=== PATIENT | male | born 1980 ===

== ENCOUNTER 2018-09-24 03:24 | Emergency (ER) | payer MEDICAID ==
[2018-09-24 04:00] VITALS: BMI 27.8
[2018-09-24 04:01] VITALS: BP 135/90; TEMP 98.6
--- NOTE | 2018-09-24 04:41 | ED PDOC ---
HPI: Influenza Time Seen by Provider: 09/24/18 04:13 Chief Complaint: Cough, Cold, Congestion Past Medical History Vital Signs: Last Vital Signs Temp 98.6 F 09/24/18 03:44 Pulse 108 H 09/24/18 03:44 Resp 18 09/24/18 03:44 BP 135/90 09/24/18 03:44 Pulse Ox 97 09/24/18 03:44 - Allergies Allergies/Adverse Reactions: Allergies Allergy/AdvReac Type Severity Reaction Status Date / Time No Known Allergies Allergy Verified 09/24/18 04:00 - ECG O2 Sat by Pulse Oximetry: 97 Disposition - Disposition
--- NOTE | 2018-09-24 05:00 | ED PDOC ---
HPI: General Adult Time Seen by Provider: 09/24/18 04:13 Chief Complaint (Nursing): Cough, Cold, Congestion Chief Complaint (Provider): cough History Per: Patient History/Exam Limitations: no limitations Onset/Duration Of Symptoms: Days (3-4x weeks) Have you had recent travel within the past 21 days to any of the following countries: [place], [place], [place] or [place]?: No Current Symptoms Are (Timing): Still Present Severity: Moderate Additional Complaint(s): 38 year old male with a past medical history of pneumonia (diagnosed last year) presents to the ED with complaints of a cough productive of yellow sputum that has been ongoing for 3-4x weeks. Patient states that last year he was diagnosed with pneumonia, but did not require hospitalization. Patient denies having fevers, chest pain, shortness of breath, hemoptysis, recent travel, and sick contacts. PMD: Vargas Craig MD Past Medical History Reviewed: Historical Data, Nursing Documentation, Vital Signs Vital Signs: Last Vital Signs Temp 98.6 F 09/24/18 03:44 Pulse 108 H 09/24/18 03:44 Resp 18 09/24/18 03:44 BP 135/90 09/24/18 03:44 Pulse Ox 97 09/24/18 04:41 - Medical History PMH: Pneumonia (2017) - Surgical History Surgical History: No Surg Hx - Family History Family History: States: No Known Family Hx - Social History Alcohol: None Drugs: Denies - Home Medications Home Medications: Ambulatory Orders Medication Instructions Recorded Albuterol HFA [Ventolin HFA 90 2 puff IH [id number] PRN #120 puff 09/24/18 mcg/actuation (8 g)] Azithromycin [Zithromax] 250 mg PO DAILY #6 tab 09/24/18 RX: Promethazine DM [Phenergan DM 5 - 10 ml PO Q8 PRN #120 ml 09/24/18 Syrup] - Allergies Allergies/Adverse Reactions: Allergies Allergy/AdvReac Type Severity Reaction Status Date / Time No Known Allergies Allergy Verified 09/24/18 04:00 Review of Systems ROS Statement: Except As Marked, All Systems Reviewed And Found Negative Constitutional: Negative for: Fever Cardiovascular: Negative for: Chest Pain Respiratory: Positive for: Cough, Sputum (yellow). Negative for: Shortness of Breath, Hemoptysis Physical Exam - Reviewed Nursing Documentation Reviewed: Yes Vital Signs Reviewed: Yes - Physical Exam Appears: Positive for: Well, Non-toxic, No Acute Distress Head Exam: Positive for: ATRAUMATIC, NORMOCEPHALIC Skin: Positive for: Normal Color, Warm, Dry Eye Exam: Positive for: Normal appearance, EOMI, PERRL ENT: Positive for: Normal ENT Inspection Cardiovascular/Chest: Positive for: Regular Rate, Rhythm. Negative for: Tachycardia Respiratory: Positive for: Normal Breath Sounds Neurologic/Psych: Positive for: Alert, Oriented (3x) - ECG O2 Sat by Pulse Oximetry: 97 (RA) Pulse Ox Interpretation: Normal - Radiology X-Ray: Interpreted by Me (CXR) X-Ray Interpretation: No Acute Disease Medical Decision Making Medical Decision Makin:13 Initial impression: 38 year old male with a cough. Initial plan: * XRay chest 2 views * reevaluation Scribe Attestation: Documented byOra Carter, acting as a scribe for Isaiah Wang Provider Scribe Attestation: All medical record entries made by the Scribe were at my direction and personally dictated by me. I have reviewed the chart and agree that the record accurately reflects my personal performance of the history, physical exam, medical decision making, and the department course for this patient. I have also personally directed, reviewed, and agree with the discharge instructions and disposition. Disposition - Clinical Impression Clinical Impression: Acute bronchitis - Patient ED Disposition Is Patient to be Admitted: No - Disposition Referrals: [facility] [Outside] Disposition: Routine/Home Disposition Time: 05:30 Condition: STABLE Additional Instructions: FOLLOW UP WITH PMD FOR FURTHER EVALUATION RETURN TO ED IMMEDIATELY IF SYMPTOMS WORSEN [place], thank you for letting us take care of you today. Your provider was Armando Stephens MD and you were treated for COUGH. The emergency medical care you received today was directed at your acute symptoms. If you were prescribed any medication, please fill it and take as directed. It may take several days for your symptoms to resolve. Return to the Emergency Department if your symptoms worsen, do not improve, or if you have any other problems. Please contact your doctor or call one of the physicians/clinics you have been referred to that are listed on the Patient Visit Information form that is included in your discharge packet. Bring any paperwork you were given at discharge with you along with any medications you are taking to your follow up visit. Our treatment cannot replace ongoing medical care by a primary care provider outside of the emergency department. Thank you for allowing the [facility] team to be part of your care today. If you had an X-Ray or CT scan: A Radiologist will review the ED reading if any change in treatment is needed we will contact you. If you had a blood, urine, or wound culture: It will take several days for the results, if any change in treatment is needed we will contact you. If you had an STI test: It will take 48 hours for the results. Please call after 1 week if you have not heard back. Prescriptions: Albuterol HFA [Ventolin HFA 90 mcg/actuation (8 g)] 2 puff IH [id number] PRN #120 puff PRN Reason: Cough Azithromycin [Zithromax] 250 mg PO DAILY #6 tab RX: Promethazine DM [Phenergan DM Syrup] 5 - 10 ml PO Q8 PRN #120 ml PRN Reason: Cough Instructions: Acute Bronchitis, Adult (DC) Forms: [employer] (German) Print Language: INDONESIAN
[2018-09-24 05:01] VITALS: PULSE 95; RESP 19
[2018-09-24 05:02] VITALS: O2SAT 97
--- NOTE | 2018-09-24 09:10 | RAD ---
Date of service: 09/24/2018 HISTORY: cough COMPARISON: No prior. TECHNIQUE: Chest PA and lateral FINDINGS: LUNGS: No active pulmonary disease. PLEURA: No significant pleural effusion identified. No pneumothorax apparent. CARDIOVASCULAR: No aortic atherosclerotic calcification present. Normal cardiac size. No pulmonary vascular congestion. OSSEOUS STRUCTURES: No significant abnormalities. VISUALIZED UPPER ABDOMEN: Normal. OTHER FINDINGS: None. IMPRESSION: No acute cardiopulmonary disease appreciated.
== END 2018-09-24 06:02 | disposition home or self-care (01) ==
LOC: H.ER 03:24
DX: J20.9 Acute bronchitis, unspecified (principal)

== ENCOUNTER 2018-10-25 15:35 | Emergency (ER) | payer MEDICAID ==
[2018-10-25 15:35] VITALS: BMI 27.8
--- NOTE | 2018-10-25 17:23 | ED PDOC ---
HPI: Influenza Time Seen by Provider: 10/25/18 16:34 Chief Complaint: Cough, Cold, Congestion Chief Complaint (Provider): cough, hemoptysis, back pain History Per: Patient, Family () Exam Limitations: no limitations Symptoms include: cough, difficulty breathing Additional complaint(s):: 38 y/o M with hx of PNA in the past but no other significant PMH who presents with persistent cough x 2 months with hemoptysis and back pain. Pt states that he has been having a cough x 2 months. He was seen here in ED on 10/01 at which time CXR was negative for acute process. He was discharged home with a course of antibiotics which he completed. Cough has remained unchanged, so he saw his PMD one week later who gave him cough medication. Cough continues to persist and has been having episodes of blood tinged sputum with some clots for the past 2 weeks or so. He states that he feels something is wrong. He has also been having some SOB and he feels like he is having weight loss but is unsure of how much. He had a fever to 102 about 5 days ago but none since. Denies dizziness, chest pain, palpitations. This morning he coughed and suddenly had an episode of acute left sided back pain. Denies hx of back pain, numbness or tingling in feet. Past Medical History Reviewed: Historical Data, Nursing Documentation, Vital Signs Vital Signs: Last Vital Signs Temp 97.8 F 10/25/18 16:20 Pulse 85 10/25/18 16:20 Resp 20 10/25/18 16:20 BP 154/103 H 10/25/18 16:20 Pulse Ox 98 10/25/18 16:20 - Medical History PMH: No Chronic Diseases, Pneumonia (2017) - Family History Family History: States: Unknown Family Hx - Home Medications Home Medications: Ambulatory Orders Medication Instructions Recorded Albuterol HFA [Ventolin HFA 90 2 puff IH [id number] PRN #120 puff 09/24/18 mcg/actuation (8 g)] Azithromycin [Zithromax] 250 mg PO DAILY #6 tab 09/24/18 RX: Promethazine DM [Phenergan DM 5 - 10 ml PO Q8 PRN #120 ml 09/24/18 Syrup] Cyclobenzaprine [Cyclobenzaprine 10 mg PO Q8 PRN 5 Days tab 10/25/18 HCl] RX: Albuterol HFA [Ventolin HFA 90 1 puff IH Q4 PRN #1 inhaler 10/25/18 mcg/actuation (8 g)] RX: Benzonatate 100 mg PO Q8 PRN 7 Days capsule 10/25/18 RX: Ibuprofen [Motrin Tab] 800 mg PO Q6 PRN 7 Days tab 10/25/18 - Allergies Allergies/Adverse Reactions: Allergies Allergy/AdvReac Type Severity Reaction Status Date / Time No Known Allergies Allergy Verified 09/24/18 04:00 Physical Exam - Reviewed Nursing Documentation Reviewed: Yes Vital Signs Reviewed: Yes - Physical Exam Appears: Positive for: Uncomfortable Head Exam: Positive for: ATRAUMATIC Skin: Positive for: Normal Color ENT: Positive for: Normal ENT Inspection Neck: Positive for: Normal Cardiovascular/Chest: Positive for: Regular Rate, Rhythm Respiratory: Positive for: Normal Breath Sounds Gastrointestinal/Abdominal: Positive for: Normal Exam Back: Positive for: Decreased ROM, Other (+ tenderness on palpation of left mid back. + back pain with flexion at hip on Left. ). Negative for: L CVA Tenderness, R CVA Tenderness Extremity: Positive for: Normal ROM Lymphatic: Positive for: Normal Exam Neurologic/Psych: Positive for: Alert, Oriented Medical Decision Making Medical Decision Making: CBC, BMP CT chest w/o contrast Toradol 30mg IM x 1 Flexeril 10mg PO x 1 CT chest:No evidence of pneumonia or suspicious consolidation in the lungs. 4.5 millimeter nodule at the left lung upper lobe. Twelve month follow-up reassessment is suggested. Slightly enlarged precarinal lymph node. 19:00: Results given to patient and recommended to f/u with otm consultant for further evaluation of cough. Also recommended to continue cough medications and Albuterol for cough. Pt's back pain has improved significantly after Flexeril and Toradol. Stable for D/C home. - Laboratory Results Result Diagrams: 10/25/18 17:47 10/25/18 17:47 - ECG O2 Sat by Pulse Oximetry: 98 Disposition - Clinical Impression Clinical Impression: Cough - Patient ED Disposition Is Patient to be Admitted: No Counseled Patient/Family Regarding: Studies Performed, Diagnosis, Need For Followup, Rx Given - Disposition Referrals: Vargas Douglas MD [Medical Doctor] - Trey Brush MD [Staff Provider] - Disposition: Routine/Home Disposition Time: 19:15 Condition: STABLE Additional Instructions: F/u with otm consultant (Dr. Brush) for further evaluation of cough and b/c of pulmonary nodule noted on your CT scan. Take Benzonatate and Albuterol inhaler as needed for cough. Take Flexeril and Ibuprofen for muscle pain. AVoid taking Flexeril if you will be driving or operating heavy machinery. Return to ER if you start to have worsening shortness of breath. Prescriptions: RX: Albuterol HFA [Ventolin HFA 90 mcg/actuation (8 g)] 1 puff IH Q4 PRN #1 inhaler PRN Reason: Cough RX: Benzonatate 100 mg PO Q8 PRN 7 Days capsule PRN Reason: Cough Cyclobenzaprine [Cyclobenzaprine HCl] 10 mg PO Q8 PRN 5 Days tab PRN Reason: Pain, Moderate (4-7) RX: Ibuprofen [Motrin Tab] 800 mg PO Q6 PRN 7 Days tab PRN Reason: Pain, Moderate (4-7) Instructions: Cough, Adult (DC) Forms: [employer] (Icelandic) Print Language: AUSTRALIAN Wells Criteria for PE - Wells Criteria for Pulmonary Embolism Clinical Signs and Symptoms of DVT: No P.E is #1 Diagnosis, or Equally Likely: No Heart Rate >100: No Immobilization at least 3 days;Surgery previous 4 weeks: No Previous, objectively diagnosed PE or DVT: No Hemoptysis: Yes Malignancy w/treatment within 6 months, or palliative: No Total Score: 1
[2018-10-25 18:29] LABS: BASO # 0.1 K/uL (0.0-0.2); BASO % 1.1 % (0.0-2.0); EOS # 0.4 K/uL (0.0-0.7); EOS % 4.1 % (0.0-4.0); HEMOGLOBIN 14.2 g/dL (12.0-18.0); LYMPH # 2.6 K/uL (1.0-4.3); LYMPH % 29.8 % (20.0-40.0); MEAN CELL VOLUME 73.1 fl (80.0-94.0); MEAN CORPUSCULAR HEMOGLOBIN 23.6 pg (27.0-31.0); MEAN CORPUSCULAR HGB CONC 32.3 g/dL (33.0-37.0); MEAN PLATELET VOLUME 6.8 fl (7.2-11.7); MONO # 0.7 K/uL (0.0-0.8); MONO % 8.2 % (0.0-10.0); NEUT # 4.9 K/uL (1.8-7.0); NEUT % 56.8 % (50.0-75.0); NRBC % 0.1 % (0.0-0.0); RBC 6.01 Mil/uL (4.40-5.90); RED CELL DISTRIBUTION WIDTH 13.7 % (11.5-14.5); WHITE BLOOD COUNT 8.6 K/uL (4.8-10.8)
[2018-10-25 18:43] LABS: BLOOD UREA NITROGEN 14 mg/dl (9-20); CALCIUM 9.1 mg/dL (8.4-10.2); GFR NON-AFRICAN AMERICAN > 60
--- NOTE | 2018-10-25 18:44 | CT ---
Date of service: 10/25/2018 PROCEDURE: CT Chest without contrast HISTORY: cough x 2 months, hemoptysis COMPARISON: None available. TECHNIQUE: Contiguous axial images were obtained through the chest without intravenous contrast enhancement. Sagittal and coronal reconstructions were performed. Radiation dose: Total exam DLP = 395.91 mGy-cm. This CT exam was performed using one or more of the following dose reduction techniques: Automated exposure control, adjustment of the mA and/or kV according to patient size, and/or use of iterative reconstruction technique. FINDINGS: LUNGS: There is no evidence of consolidation in the lungs. There is 4.5 millimeter noncalcified nodule at the left lung upper lobe adjacent to the left fissure. The upper airway is patent. MEDIASTINUM: Unremarkable thoracic aorta. No aneurysm. Normal sized heart. Main pulmonary artery unremarkable. No vascular congestion. Slightly prominent precarinal lymph node is noted. Otherwise no evidence of significant lymphadenopathy. The thyroid gland is normal in size. No aortic atherosclerotic calcification. PLEURA: No pleural fluid. No pneumothorax. BONES: No fracture. No destructive lesion. UPPER ABDOMEN: The liver is mildly enlarged. OTHER FINDINGS: None. IMPRESSION: No evidence of pneumonia or suspicious consolidation in the lungs. 4.5 millimeter nodule at the left lung upper lobe. Twelve month follow-up reassessment is suggested. Slightly enlarged precarinal lymph node.
[2018-10-25 19:34] VITALS: BP 141/91; PULSE 88; RESP 18; TEMP 97.9
[2018-10-25 20:28] VITALS: O2SAT 98
== END 2018-10-25 19:32 | disposition home or self-care (01) ==
LOC: H.ER 15:35
DX: R05 Cough (principal)
CPT/HCPCS: 71250; 80048; 85025; 96372; 99283; J1885